=== PATIENT | female | born 1950 | race Caucasian/White ===

== ENCOUNTER 2017-05-20 08:28 | Observation (INO) | payer BC ==
[~2017-05-20 08:28] MED LIST: HYDROmorphone 1 MG/ML Syringe ONE; Ketorolac 30 MG/ML SDV ONE; Lactated Ringers 1,000 ML ONE; Lidocaine 1%/Sod Bicarbonate in NS 8.4% 1 ML Syringe PRN; Midazolam 1 MG/ML 2 ML SDV ONE; Ondansetron 4 MG/2 ML SDV ONE; Propofol 200 MG/20 ML SDV ONE; Rocuronium 50 MG/5 ML Vial ONE; Sodium Chloride 0.9% 10 ML Syringe FLUSH PRN; ceFAZolin 1 GM Vial ONE; fentaNYL 250 MCG/5 ML SDV ONE
[2017-05-20] MEDS: Lactated Ringers 1,000 ML IV SCH ×3 (08:50→20:19)
[2017-05-20] MEDS ORDERED: Lidocaine 1% with EPINEPHrine 1:100,000 20 ML MDV ONE (09:04)
[2017-05-20] MEDS ORDERED: Bupivacaine 0.5% 30 ML SDV ONE (09:04)
[2017-05-20] MEDS ORDERED: Sodium Chloride 0.9% 50 ML SDV ONE (09:04)
--- NOTE | 2017-05-20 09:36 | PCM.PREANE ---
[id number] - Anesthesia/Transfusion/Family Hx Anesthesia History: Prior Anesthesia Without Reaction (had some delayed n/v from colonoscopy last year and several weeks of cough/tickle in throat) Family History of Anesthesia Reaction: No - Review of Systems General: No Symptoms Pulmonary: No Symptoms Cardiovascular: No Symptoms Gastrointestinal: No symptoms Neurological: No Symptoms Other: Reports: Easy Bruising - Physical Assessment NPO Status Date: 05/19/17 NPO Status Time: 23:15 O2 Sat by Pulse Oximetry: 94 Respiratory Rate: 18 Vital Signs: Last Vital Signs Temp 36.1 C 05/20/17 08:30 Pulse 67 05/20/17 08:30 Resp 18 05/20/17 08:30 BP 125/83 05/20/17 08:30 Pulse Ox 94 L 05/20/17 08:30 Height: 1.57 m Weight: 85.729 kg ASA Class: 2 Mental Status: Alert & Oriented x3 Airway Class: Mallampati = 2 Dentition: Reports: Larose(s) (x3 lower), Bridge (rm upper right back) Thyro-Mental Finger Breadths: 3 Mouth Opening Finger Breadths: 3 ROM/Head Extension: Full Lungs: Clear to auscultation, Normal respiratory effort Cardiovascular: Regular Rate, Regular Rhythm, No Murmurs - Lab Values: Laboratory Last Values WBC 6.44 K/mm3 (3.98-10.04) 05/19/17 13:49 RBC 5.18 M/mm3 (3.98-5.22) 05/19/17 13:49 Hgb 14.9 gm/L (11.2-15.7) 05/19/17 13:49 Hct 44.2 % (34.1-44.9) 05/19/17 13:49 MCV 85.3 fl (79.4-94.8) 05/19/17 13:49 MCH 28.8 pg (25.6-32.2) 05/19/17 13:49 MCHC 33.7 g/dl (32.2-35.5) 05/19/17 13:49 RDW Std Deviation 42.0 fL (36.4-46.3) 05/19/17 13:49 Plt Count 279 K/mm3 (182-369) 05/19/17 13:49 MPV 10.4 fl (9.4-12.3) 05/19/17 13:49 Neut % (Auto) 53.9 % (34.0-71.1) 05/19/17 13:49 Lymph % (Auto) 31.5 % (19.3-51.7) 05/19/17 13:49 Green % (Auto) 10.2 % (4.7-12.5) 05/19/17 13:49 Eos % (Auto) 3.6 (0.7-5.8) 05/19/17 13:49 Baso % (Auto) 0.5 % (0.1-1.2) 05/19/17 13:49 Neut # (Auto) 3.47 K/mm3 (1.56-6.13) 05/19/17 13:49 Lymph # (Auto) 2.03 K/mm3 (1.18-3.74) 05/19/17 13:49 Green # (Auto) 0.66 K/mm3 (0.24-0.36) H 05/19/17 13:49 Eos # (Auto) 0.23 K/mm3 (0.04-0.36) 05/19/17 13:49 Baso # (Auto) 0.03 K/mm3 (0.01-0.08) 05/19/17 13:49 Blood Type O POSITIVE 05/19/17 13:49 Gel Antibody Screen Negative 05/19/17 13:49 - Imaging/EKG Impressions: EKG Sinus Rhythm with nos-specific t-wame abn. - Allergies Allergies/Adverse Reactions: Allergies Allergy/AdvReac Type Severity Reaction Status Date / Time lidocaine Allergy Facial Verified 05/20/17 09:22 Swelling - Blood Blood Available: No - Acknowledgements Anesthesia Type Planned: General Anesthesia Pt an Appropriate Candidate for the Planned Anesthesia: Yes Alternatives and Risks of Anesthesia Discussed w Pt/Guardian: Yes Pt/Guardian Understands and Agrees with Anesthesia Plan: Yes PreAnesthesia Questionnaire HEENT History: Reports: Impaired Vision, Other (See Below) Other HEENT History: wears glasses Cardiovascular History: Reports: None Respiratory History: Reports: None Gastrointestinal History: Reports: Irritable Bowel Syndrome Genitourinary History: Reports: Other (See Below) Other Genitourinary History: cystocele, pelvic pressure, pelvic prolapse, rectocele HR ASSISTANT History: Reports: , Other (See Below) Other OB/BYN History: pelvic pressure and prolapse, fibrocystic breast disease, breast lumpectomy Musculoskeletal History: Reports: None Neurological History: Reports: None Psychiatric History: Reports: None Endocrine/Metabolic History: Reports: None Hematologic History: Reports: None Immunologic History: Reports: None Oncologic (Cancer) History: Reports: None Dermatologic History: Reports: None - Past Surgical History Head Surgeries/Procedures: Reports: None HEENT Surgical History: Reports: Tonsillectomy Cardiovascular Surgical History: Reports: None Respiratory Surgical History: Reports: None GI Surgical History: Reports: Appendectomy, Colonoscopy Endocrine Surgical History: Reports: None Neurological Surgical History: Reports: None Musculoskeletal Surgical History: Reports: Other (See Below) Other Musculoskeletal Surgeries/Procedures:: cyst removed from R middle finger in 2010 Oncologic Surgical History: Reports: Lumpectomy Other Oncologic Surgeries/Procedures: breast lumpectecomy for fibrocystic breast disease Dermatological Surgical History: Reports: None - SUBSTANCE USE Smoking Status *Q: Never Smoker Tobacco Use Within Last Twelve Months: No Days Per Week of Alcohol Use: 0 (endorses rare alcohol consumption) Recreational Drug Use History: No - HOME MEDS Home Medications: Home Meds Calcium Carbonate/Vitamin D3 [Calcium 500 + Vit D Caplet] 1 tab PO DAILY [History] Estrogens, Conjugated [Premarin Vaginal Crm] 1 applic VAG BEDTIME 05/19/17 [ History] L.acidoph,Paracasei, B.lactis [Probiotic] 1 cap PO DAILY 05/19/17 [History] Multivits,Ca,Minerals/Iron/FA [Women's Daily Formula Caplet] 1 tab PO DAILY [History] Ibuprofen [Motrin] 600 mg PO Q6H #50 tablet 05/20/17 [Rx] oxyCODONE HCl/Acetaminophen [Percocet 5-325 mg Tablet] 1 each PO Q6H #30 tablet 05/20/17 [Rx] - CURRENT (IN HOUSE) MEDS Current Meds: Current Medications Lactated Ringer's (Ringers, Lactated) 1,000 mls @ 125 mls/hr IV ASDIRECTED AUBREY Stop: 05/20/17 23:00 Last Admin: 05/20/17 08:50 Dose: 125 mls/hr Lidocaine/Sodium Bicarbonate (Buffered Lidocaine 1% In Ns 8.4%) 0.25 ml .XX ONETIME PRN PRN Reason: Prior to IV Start Stop: 05/20/17 18:00 Last Admin: 05/20/17 08:49 Dose: 0.25 ml Sodium Chloride (Saline Flush) 10 ml FLUSH ASDIRECTED PRN PRN Reason: Keep Vein Open Stop: 05/20/17 18:00 Discontinued Medications Bupivacaine HCl (Marcaine 0.5%) Confirm Administered Dose 30 ml .ROUTE .STK-MED ONE Stop: 05/20/17 09:05 Cefazolin Sodium (Ancef) Confirm Administered Dose 2 gm .ROUTE .STK-MED ONE Stop: 05/20/17 07:33 Fentanyl (Sublimaze) Confirm Administered Dose 250 mcg .ROUTE .STK-MED ONE Stop: 05/20/17 07:34 Hydromorphone HCl (Dilaudid) Confirm Administered Dose 1 mg .ROUTE .STK-MED ONE Stop: 05/20/17 07:33 Lactated Ringer's (Ringers, Lactated) Confirm Administered Dose 1,000 mls @ as directed .ROUTE .STK-MED ONE Stop: 05/20/17 07:33 Ketorolac Tromethamine (Toradol) Confirm Administered Dose 30 mg .ROUTE .STK- MED ONE Stop: 05/20/17 07:33 Lidocaine/Epinephrine (Xylocaine 1% With Epinephrine 1:100,000) Confirm Administered Dose 20 ml .ROUTE .STK-MED ONE Stop: 05/20/17 09:05 Midazolam HCl (Versed 1 Mg/Ml) Confirm Administered Dose 2 mg .ROUTE .STK-MED ONE Stop: 05/20/17 07:34 Ondansetron HCl (Zofran) Confirm Administered Dose 4 mg .ROUTE .STK-MED ONE Stop: 05/20/17 07:33 Propofol (Diprivan 20 Ml) Confirm Administered Dose 200 mg .ROUTE .STK-MED ONE Stop: 05/20/17 07:34 Rocuronium Penn (Zemuron) Confirm Administered Dose 50 mg .ROUTE .STK-MED ONE Stop: 05/20/17 07:33 Sodium Chloride (Normal Saline) Confirm Administered Dose 50 ml .ROUTE .STK-MED ONE Stop: 05/20/17 09:05
[2017-05-20] MEDS ORDERED: Ondansetron 4 MG/2 ML SDV IVPUSH PRN ×2 (11:02→19:59)
[2017-05-20] MEDS ORDERED: ePHEDrine 50 MG/ML SDV IVPUSH PRN (11:02)
[2017-05-20] MEDS ORDERED: HYDROmorphone 0.5 MG/0.5 ML Syringe IVPUSH PRN (11:02)
[2017-05-20] MEDS ORDERED: Neostigmine Methylsulfate 1 MG/ML 5 ML Syringe ONE (11:22)
[2017-05-20] MEDS ORDERED: Albuterol 0.083% 2.5 MG/3 ML Neb Soln NEB PRN (11:24)
--- NOTE | 2017-05-20 12:03 | PCM.POSTAN ---
POST ANESTHESIA ASSESSMENT - MENTAL STATUS Mental Status: somnolent - VITAL SIGNS Pulse Rate: 76 SaO2: 98 Resp Rate: 13 Blood Pressure: 103/57 Temperature: 37.1 C - RESPIRATORY Respiratory Status: respiratory rate WNL, airway patent, O2 saturation stable, supplemental oxygen - CARDIOVASCULAR CV Status: pulse rate WNL, blood pressure stable - GASTROINTESTINAL GI Status: no symptoms - POST OP HYDRATION Hydration Status: adequate & stable
--- NOTE | 2017-05-20 12:10 | PCM.OPNOTE ---
- General Post-Op/Procedure Note Date of Surgery/Procedure: 05/20/17 Operative Procedure(s): Total vaginal hysterectomy bilateral salpingo- [id number]. Anterior-posterior [id number]. Mid urethral sling [id number] Pre Op Diagnosis: Midline cystocele pelvic prolapse rectocele Post-Op Diagnosis: Same Anesthesia Technique: General ET tube Primary Surgeon: Jason Lal Secondary Surgeon: Faraz Bravo Anesthesia Provider: Le Moreno Fluid Replacement, Intraop: 1,600 Output, Urine Amount: 170 EBL in mLs: 300 Drain/Tube Comments:: None Complications: None Condition: Good Free Text/Narrative:: Intake & Output 05/19/17 05/20/17 05/20/17 22:59 06:59 14:59 Output Total 170 Balance -170 Patient was transported to operating room #2 and placed under general anesthesia with endotracheal intubation low dorsal lithotomy position. Draped in a sterile fashion SCDs in place and functioning prior surgery Ancef 2 g intravenously prior surgery given timeout performed confirming name did worsen procedures total vaginal hysterectomy and bilateral salpingo-oophorectomy anterior-posterior repair mid urethral sling (patient also had been prepared for flap scope cystovaginal hysterectomy or total abdominal hysterectomy needs required) the examination under anesthesia had revealed significant prolapse and normal size uterus for patient's age no adnexal masses decision was made to proceed vaginally injecting approximately 20 mL of 0.25% lidocaine with epinephrine in a circumferential area around the cervix and circumscribing the cervix posterior colpotomy was performed without difficulty sitting and the pedicle fashion cephalad crossclamping activating and incising utilizing LigaSure the uterosacral cardinal ligaments were crossclamped activated in size and proceeding cephalad 1 additional pedicle bilaterally and anterior colpotomy was then performed without difficulty proceeding cephalad in the pedicle fashion crossclamping activating incising until the posterior fundal portion of the uterus could be brought through the posterior portion of the incision and crossclamping the triple pedicles bilaterally the uterus removed the triple pedicles were then placed under traction and crossclamping above the tube and ovaries the infundibulopelvic ligament was crossclamped and incised and suture ligated with #1 Vicryl bilaterally with good hemostasis the posterior vaginal cuff was run with a running locking suture of 0 Monocryl to assist in hemostasis pursestring suture was then placed of 0 Monocryl incorporating the pedicles extraperitoneally anterior colporrhaphy was then performed undermining the anterior cystovaginal tissue was approximated 7 mL of 0.25% lidocaine with epinephrine and incising along the vaginal midline then utilizing traction and countertraction and opened up 4 x 4 the cystocele was peeled away from the underlying vaginal mucosa after having inscribe same with Metzenbaum scissors the plication wasn't performed a 0 Monocryl beginning at the cysto urethral angle and proceeding cephalad the cystocele was reduced redundant vaginal mucosa excised and the vaginal mucosa approximated with 3-0 Monocryl running suture suburethral space was then identified and grasped near the urethral meatus and at the cystoscopy vesicle angle and bladder emptied injecting approximately 3 mL of 0.25% lidocaine with epinephrine for hydrodissection of the tissue incising vertically and pushing the urethral tissue away from the vaginal mucosa subsurface having identified the obturator foramina bilaterally and marking same injecting 2 mL of 0.25% lidocaine and incising with 15 blade the obturator foramen was approximated from the vaginal angle and utilizing the mid urethral sling trochars introduced on the right side and then on the left side and the sling was placed under the urethra with a #1516 Hegar dilator to allow relaxation of this area postoperatively in trying to avoid severe scar tissue and making it more difficult for her to avoid the incision was closed with 3-0 Monocryl running suture the posterior perineorrhaphy and colporrhaphy was then performed and injecting approximately 20 mL of 0.25% lidocaine with epinephrine and multiple confluent areas of the vagina and towards the apex of the rectocele a miguel angel-shaped incision was made at the perineal body removing this redundant skin and undermining the vaginal mucosa with Metzenbaum scissor to the apex of the rectocele then pushing the rectocele tissue caudad utilizing opened wet 4 x 4 plication of the rectocele was then performed producing rectocele utilizing 0 Monocryl suture in multiple areas beginning at the apex and approaching the perineal body lengthening the vagina and reducing the rectocele redundant vaginal mucosa was excised the vaginal mucosa was then closed with 3-0 Monocryl running suture and the perineorrhaphy was performed with 2 interrupted 0 Monocryl sutures for strengthen the perineal body and the perineal skin was approximated with 3-0 Monocryl sponge needle pack asthma sharp count correct 2 upon closure of the abdomen at the end of the procedure patient tolerated procedure well transported postanesthesia care unit in satisfactory condition and met with her friend and nephew to discuss surgery findings all questions arrested her voiced satisfaction no blood transfusions were required 240 mL of saline instilled in the bladder to the procedure to assist in the urge to void patient also will be given Urecholine 10 mg hourly for 5 doses and then every 6 hours thereafter if unable to void
[2017-05-20] MEDS ORDERED: fentaNYL 100 MCG/2 ML SDV ONE (12:18)
[2017-05-20] MEDS ORDERED: fentaNYL 100 MCG/2 ML SDV IVPUSH SCH (12:19)
[2017-05-20] MEDS: fentaNYL 100 MCG/2 ML SDV IVPUSH PRN ×2 (12:21→12:37)
--- NOTE | 2017-05-20 13:33 | PCM48HPAN ---
Post Anesthesia Note - EVALUATION WITHIN 48HRS OF ANESTHETIC Vital Signs in Normal Range: Yes Patient Participated in Evaluation: Yes Respiratory Function Stable: Yes Airway Patent: Yes Cardiovascular Function Stable: Yes Hydration Status Stable: Yes Pain Control Satisfactory: Yes Nausea and Vomiting Control Satisfactory: Yes Mental Status Recovered: Yes
--- NOTE | 2017-05-20 16:46 | PCM.SN ---
- Free Text/Narrative Note: Patient having acute urinary retention and if unable to void will be placed on Observation status. Orders given. Visited with patient and discussed the urinary retention. Will have patient void and measure voiding, then scan bladder for residual and if >150 ml in and out cath and repeat each voiding. On Urecholine 10 mg po q6h. If post void residual <150 ml no need for in out cath. No heavy vaginal bleeding, no leg cramping. Patient agrees with plan.
[2017-05-20] MEDS ORDERED: Acetaminophen/oxyCODONE 325-5 MG Tab PO PRN ×2 (16:55→18:19)
[2017-05-21] MEDS: Lactated Ringers 1,000 ML IV SCH (06:23)
[2017-05-21 08:20] VITALS: BP 100/57
--- NOTE | 2017-05-21 08:37 | PCM.DCSUM1 ---
Discharge Summary - Hospital Course Free Text/Narrative:: [facility] Post-Op/Procedure Note Patient Name: UGO IGNACIO Date of : 1950 Patient Status: Observation Attending Provider: Jason Lal Date: 05/20/17 12:01 Initialization Date: 05/20/17 12:01 - General Post-Op/Procedure Note Date of Surgery/Procedure: 05/20/17 Operative Procedure(s): Total vaginal hysterectomy bilateral salpingo- [id number]. Anterior-posterior [id number]. Mid urethral sling [id number] Pre Op Diagnosis: Midline cystocele pelvic prolapse rectocele Post-Op Diagnosis: Same Anesthesia Technique: General ET tube Primary Surgeon: Jason Lal Secondary Surgeon: Faraz Bravo Anesthesia Provider: Le Moreno Fluid Replacement, Intraop: 1,600 Output, Urine Amount: 170 EBL in mLs: 300 Drain/Tube Comments:: None Complications: None Condition: Good Free Text/Narrative:: Intake & Output 05/19/17 05/20/17 05/20/17 22:59 06:59 14:59 Output Total 170 Balance -170 Patient was transported to operating room #2 and placed under general anesthesia with endotracheal intubation low dorsal lithotomy position. Draped in a sterile fashion SCDs in place and functioning prior surgery Ancef 2 g intravenously prior surgery given timeout performed confirming name did worsen procedures total vaginal hysterectomy and bilateral salpingo-oophorectomy anterior-posterior repair mid urethral sling (patient also had been prepared for flap scope cystovaginal hysterectomy or total abdominal hysterectomy needs required) the examination under anesthesia had revealed significant prolapse and normal size uterus for patient's age no adnexal masses decision was made to proceed vaginally injecting approximately 20 mL of 0.25% lidocaine with epinephrine in a circumferential area around the cervix and circumscribing the cervix posterior colpotomy was performed without difficulty sitting and the pedicle fashion cephalad crossclamping activating and incising utilizing LigaSure the uterosacral cardinal ligaments were crossclamped activated in size and proceeding cephalad 1 additional pedicle bilaterally and anterior colpotomy was then performed without difficulty proceeding cephalad in the pedicle fashion crossclamping activating incising until the posterior fundal portion of the uterus could be brought through the posterior portion of the incision and crossclamping the triple pedicles bilaterally the uterus removed the triple pedicles were then placed under traction and crossclamping above the tube and ovaries the infundibulopelvic ligament was crossclamped and incised and suture ligated with #1 Vicryl bilaterally with good hemostasis the posterior vaginal cuff was run with a running locking suture of 0 Monocryl to assist in hemostasis pursestring suture was then placed of 0 Monocryl incorporating the pedicles extraperitoneally anterior colporrhaphy was then performed undermining the anterior cystovaginal tissue was approximated 7 mL of 0.25% lidocaine with epinephrine and incising along the vaginal midline then utilizing traction and countertraction and opened up 4 x 4 the cystocele was peeled away from the underlying vaginal mucosa after having inscribe same with Metzenbaum scissors the plication wasn't performed a 0 Monocryl beginning at the cysto urethral angle and proceeding cephalad the cystocele was reduced redundant vaginal mucosa excised and the vaginal mucosa approximated with 3-0 Monocryl running suture suburethral space was then identified and grasped near the urethral meatus and at the cystoscopy vesicle angle and bladder emptied injecting approximately 3 mL of 0.25% lidocaine with epinephrine for hydrodissection of the tissue incising vertically and pushing the urethral tissue away from the vaginal mucosa subsurface having identified the obturator foramina bilaterally and marking same injecting 2 mL of 0.25% lidocaine and incising with 15 blade the obturator foramen was approximated from the vaginal angle and utilizing the mid urethral sling trochars introduced on the right side and then on the left side and the sling was placed under the urethra with a #1516 Hegar dilator to allow relaxation of this area postoperatively in trying to avoid severe scar tissue and making it more difficult for her to avoid the incision was closed with 3-0 Monocryl running suture the posterior perineorrhaphy and colporrhaphy was then performed and injecting approximately 20 mL of 0.25% lidocaine with epinephrine and multiple confluent areas of the vagina and towards the apex of the rectocele a miguel angel-shaped incision was made at the perineal body removing this redundant skin and undermining the vaginal mucosa with Metzenbaum scissor to the apex of the rectocele then pushing the rectocele tissue caudad utilizing opened wet 4 x 4 plication of the rectocele was then performed producing rectocele utilizing 0 Monocryl suture in multiple areas beginning at the apex and approaching the perineal body lengthening the vagina and reducing the rectocele redundant vaginal mucosa was excised the vaginal mucosa was then closed with 3-0 Monocryl running suture and the perineorrhaphy was performed with 2 interrupted 0 Monocryl sutures for strengthen the perineal body and the perineal skin was approximated with 3-0 Monocryl sponge needle pack asthma sharp count correct 2 upon closure of the abdomen at the end of the procedure patient tolerated procedure well transported postanesthesia care unit in satisfactory condition and met with her friend and nephew to discuss surgery findings all questions arrested her voiced satisfaction no blood transfusions were required 240 mL of saline instilled in the bladder to the procedure to assist in the urge to void patient also will be given Urecholine 10 mg hourly for 5 doses and then every 6 hours thereafter if unable to void HPI Initial Comments: [facility] Post-Op/Procedure Note Patient Name: UGO IGNACIO Date of : 1950 Patient Status: Observation Attending Provider: Jason Lal Date: 05/20/17 12:01 Initialization Date: 05/20/17 12:01 - General Post-Op/Procedure Note Date of Surgery/Procedure: 05/20/17 Operative Procedure(s): Total vaginal hysterectomy bilateral salpingo- [id number]. Anterior-posterior [id number]. Mid urethral sling [id number] Pre Op Diagnosis: Midline cystocele pelvic prolapse rectocele Post-Op Diagnosis: Same Anesthesia Technique: General ET tube Primary Surgeon: Jason Lal Secondary Surgeon: Faraz Bravo Anesthesia Provider: Le Moreno Fluid Replacement, Intraop: 1,600 Output, Urine Amount: 170 EBL in mLs: 300 Drain/Tube Comments:: None Complications: None Condition: Good Free Text/Narrative:: Intake & Output 05/19/17 05/20/17 05/20/17 22:59 06:59 14:59 Output Total 170 Balance -170 Patient was transported to operating room #2 and placed under general anesthesia with endotracheal intubation low dorsal lithotomy position. Draped in a sterile fashion SCDs in place and functioning prior surgery Ancef 2 g intravenously prior surgery given timeout performed confirming name did worsen procedures total vaginal hysterectomy and bilateral salpingo-oophorectomy anterior-posterior repair mid urethral sling (patient also had been prepared for flap scope cystovaginal hysterectomy or total abdominal hysterectomy needs required) the examination under anesthesia had revealed significant prolapse and normal size uterus for patient's age no adnexal masses decision was made to proceed vaginally injecting approximately 20 mL of 0.25% lidocaine with epinephrine in a circumferential area around the cervix and circumscribing the cervix posterior colpotomy was performed without difficulty sitting and the pedicle fashion cephalad crossclamping activating and incising utilizing LigaSure the uterosacral cardinal ligaments were crossclamped activated in size and proceeding cephalad 1 additional pedicle bilaterally and anterior colpotomy was then performed without difficulty proceeding cephalad in the pedicle fashion crossclamping activating incising until the posterior fundal portion of the uterus could be brought through the posterior portion of the incision and crossclamping the triple pedicles bilaterally the uterus removed the triple pedicles were then placed under traction and crossclamping above the tube and ovaries the infundibulopelvic ligament was crossclamped and incised and suture ligated with #1 Vicryl bilaterally with good hemostasis the posterior vaginal cuff was run with a running locking suture of 0 Monocryl to assist in hemostasis pursestring suture was then placed of 0 Monocryl incorporating the pedicles extraperitoneally anterior colporrhaphy was then performed undermining the anterior cystovaginal tissue was approximated 7 mL of 0.25% lidocaine with epinephrine and incising along the vaginal midline then utilizing traction and countertraction and opened up 4 x 4 the cystocele was peeled away from the underlying vaginal mucosa after having inscribe same with Metzenbaum scissors the plication wasn't performed a 0 Monocryl beginning at the cysto urethral angle and proceeding cephalad the cystocele was reduced redundant vaginal mucosa excised and the vaginal mucosa approximated with 3-0 Monocryl running suture suburethral space was then identified and grasped near the urethral meatus and at the cystoscopy vesicle angle and bladder emptied injecting approximately 3 mL of 0.25% lidocaine with epinephrine for hydrodissection of the tissue incising vertically and pushing the urethral tissue away from the vaginal mucosa subsurface having identified the obturator foramina bilaterally and marking same injecting 2 mL of 0.25% lidocaine and incising with 15 blade the obturator foramen was approximated from the vaginal angle and utilizing the mid urethral sling trochars introduced on the right side and then on the left side and the sling was placed under the urethra with a #1516 Hegar dilator to allow relaxation of this area postoperatively in trying to avoid severe scar tissue and making it more difficult for her to avoid the incision was closed with 3-0 Monocryl running suture the posterior perineorrhaphy and colporrhaphy was then performed and injecting approximately 20 mL of 0.25% lidocaine with epinephrine and multiple confluent areas of the vagina and towards the apex of the rectocele a miguel angel-shaped incision was made at the perineal body removing this redundant skin and undermining the vaginal mucosa with Metzenbaum scissor to the apex of the rectocele then pushing the rectocele tissue caudad utilizing opened wet 4 x 4 plication of the rectocele was then performed producing rectocele utilizing 0 Monocryl suture in multiple areas beginning at the apex and approaching the perineal body lengthening the vagina and reducing the rectocele redundant vaginal mucosa was excised the vaginal mucosa was then closed with 3-0 Monocryl running suture and the perineorrhaphy was performed with 2 interrupted 0 Monocryl sutures for strengthen the perineal body and the perineal skin was approximated with 3-0 Monocryl sponge needle pack asthma sharp count correct 2 upon closure of the abdomen at the end of the procedure patient tolerated procedure well transported postanesthesia care unit in satisfactory condition and met with her friend and nephew to discuss surgery findings all questions arrested her voiced satisfaction no blood transfusions were required 240 mL of saline instilled in the bladder to the procedure to assist in the urge to void patient also will be given Urecholine 10 mg hourly for 5 doses and then every 6 hours thereafter if unable to void Brief History: [facility] . Post-Op/Procedure Note. [facility]: [id number]. Date of : 1Patient Status: Observation. Attending Provider: Jason Lalount Number: [id number]. Date: 05/20/17 12:01Initialization Date: 12:01. - General Post-Op/Procedure Note. Date of Surgery/Procedure: . Operative Procedure(s): Total vaginal hysterectomy bilateral salpingo- [id number]. Anterior-posterior [id number]. Mid urethral sling 30305. Pre Op Diagnosis: Midline cystocele pelvic prolapse rectocele. Post-Op Diagnosis: Same. Anesthesia Technique: General ET tube. Primary Surgeon: Jason Lal. Secondary Surgeon: Faraz Bravo. Anesthesia Provider: Le Moreno. Fluid Replacement, Intraop: 1,600. Output, Urine Amount: 170. EBL in mLs: 300. Drain/Tube Comments:: None. Complications: None. Condition: Good. Free Text/Narrative:: Intake & Output. 05/19/1706. 22:5906:5914:59. Output [id number]. Balance-170. Patient was transported to operating room #2 and placed under general anesthesia with endotracheal intubation low dorsal lithotomy position. Draped in a sterile fashion SCDs in place and functioning prior surgery Ancef 2 g intravenously prior surgery given timeout performed confirming name did worsen procedures total vaginal hysterectomy and bilateral salpingo-oophorectomy anterior-posterior repair mid urethral sling (patient also had been prepared for flap scope cystovaginal hysterectomy or total abdominal hysterectomy needs required) the examination under anesthesia had revealed significant prolapse and normal size uterus for patient's age no adnexal masses decision was made to proceed vaginally injecting approximately 20 mL of 0.25% lidocaine with epinephrine in a circumferential area around the cervix and circumscribing the cervix posterior colpotomy was performed without difficulty sitting and the pedicle fashion cephalad crossclamping activating and incising utilizing LigaSure the uterosacral cardinal ligaments were crossclamped activated in size and proceeding cephalad 1 additional pedicle bilaterally and anterior colpotomy was then performed without difficulty proceeding cephalad in the pedicle fashion crossclamping activating incising until the posterior fundal portion of the uterus could be brought through the posterior portion of the incision and crossclamping the triple pedicles bilaterally the uterus removed the triple pedicles were then placed under traction and crossclamping above the tube and ovaries the infundibulopelvic ligament was crossclamped and incised and suture ligated with #1 Vicryl bilaterally with good hemostasis the posterior vaginal cuff was run with a running locking suture of 0 Monocryl to assist in hemostasis pursestring suture was then placed of 0 Monocryl incorporating the pedicles extraperitoneally anterior colporrhaphy was then performed undermining the anterior cystovaginal tissue was approximated 7 mL of 0.25% lidocaine with epinephrine and incising along the vaginal midline then utilizing traction and countertraction and opened up 4 x 4 the cystocele was peeled away from the underlying vaginal mucosa after having inscribe same with Metzenbaum scissors the plication wasn't performed a 0 Monocryl beginning at the cysto urethral angle and proceeding cephalad the cystocele was reduced redundant vaginal mucosa excised and the vaginal mucosa approximated with 3-0 Monocryl running suture suburethral space was then identified and grasped near the urethral meatus and at the cystoscopy vesicle angle and bladder emptied injecting approximately 3 mL of 0.25% lidocaine with epinephrine for hydrodissection of the tissue incising vertically and pushing the urethral tissue away from the vaginal mucosa subsurface having identified the obturator foramina bilaterally and marking same injecting 2 mL of 0.25% lidocaine and incising with 15 blade the obturator foramen was approximated from the vaginal angle and utilizing the mid urethral sling trochars introduced on the right side and then on the left side and the sling was placed under the urethra with a #1516 Hegar dilator to allow relaxation of this area postoperatively in trying to avoid severe scar tissue and making it more difficult for her to avoid the incision was closed with 3-0 Monocryl running suture the posterior perineorrhaphy and colporrhaphy was then performed and injecting approximately 20 mL of 0.25% lidocaine with epinephrine and multiple confluent areas of the vagina and towards the apex of the rectocele a miguel angel-shaped incision was made at the perineal body removing this redundant skin and undermining the vaginal mucosa with Metzenbaum scissor to the apex of the rectocele then pushing the rectocele tissue caudad utilizing opened wet 4 x 4 plication of the rectocele was then performed producing rectocele utilizing 0 Monocryl suture in multiple areas beginning at the apex and approaching the perineal body lengthening the vagina and reducing the rectocele redundant vaginal mucosa was excised the vaginal mucosa was then closed with 3-0 Monocryl running suture and the perineorrhaphy was performed with 2 interrupted 0 Monocryl sutures for strengthen the perineal body and the perineal skin was approximated with 3-0 Monocryl sponge needle pack asthma sharp count correct 2 upon closure of the abdomen at the end of the procedure patient tolerated procedure well transported postanesthesia care unit in satisfactory condition and met with her friend and nephew to discuss surgery findings all questions arrested her voiced satisfaction no blood transfusions were required 240 mL of saline instilled in the bladder to the procedure to assist in the urge to void patient also will be given Urecholine 10 mg hourly for 5 doses and then every 6 hours thereafter if unable to void - Discharge Data Discharge Date: 05/21/17 Discharge Disposition: Home, Self-Care 01 Condition: Good - Discharge Diagnosis/Problem(s) (1) Rectocele SNOMED Code(s): 792609923 ICD Code: N81.6 - RECTOCELE Status: Acute Current Visit: Yes (2) Female genital prolapse SNOMED Code(s): 69911368 ICD Code: N81.9 - FEMALE GENITAL PROLAPSE, UNSPECIFIED Status: Acute Current Visit: Yes Qualifiers: Prolapse type: incomplete uterovaginal prolapse Qualified Code(s): N81.2 - Incomplete uterovaginal prolapse (3) Cystocele, midline SNOMED Code(s): 916521372 ICD Code: N81.11 - CYSTOCELE, MIDLINE Status: Acute Current Visit: Yes (4) Acute urinary retention SNOMED Code(s): 106141139 ICD Code: R33.8 - OTHER RETENTION OF URINE Status: Acute Current Visit: Yes - Patient Summary/Data Operative Procedure(s) Performed: Total vaginal hysterectomy bilateral salpingo- [id number]. Anterior-posterior [id number]. Mid urethral sling 02969 Complications: acute urinary retention resovled Consults: none Hospital Course: uneventful - Patient Instructions Diet: Heart Healthy Diet Driving: Do Not Drive (x48 hours after surgery and 48 hours after last Percocet) Showering/Bathing: May Shower, No Tub Bathing/Swimming (x6 weeks) Wound/Incision Care: Keep Operative Site/Wound Site Clean and Dry Notify Provider of: Fever, Increased Pain, Swelling and Redness, Drainage - Discharge Plan Prescriptions/Med Rec: Bethanechol Chloride [Urecholine] 10 mg PO QID #30 tablet Ibuprofen [Motrin] 600 mg PO Q6H #50 tablet oxyCODONE HCl/Acetaminophen [Percocet 5-325 mg Tablet] 1 each PO Q6H #30 tablet Home Medications: Home Meds Calcium Carbonate/Vitamin D3 [Calcium 500 + Vit D Caplet] 1 tab PO DAILY [History] Estrogens, Conjugated [Premarin Vaginal Crm] 1 applic VAG BEDTIME 05/19/17 [ History] L.acidoph,Paracasei, B.lactis [Probiotic] 1 cap PO DAILY 05/19/17 [History] Multivits,Ca,Minerals/Iron/FA [Women's Daily Formula Caplet] 1 tab PO DAILY [History] Ibuprofen [Motrin] 600 mg PO Q6H #50 tablet 05/20/17 [Rx] oxyCODONE HCl/Acetaminophen [Percocet 5-325 mg Tablet] 1 each PO Q6H #30 tablet 05/20/17 [Rx] Bethanechol Chloride [Urecholine] 10 mg PO QID #30 tablet 05/21/17 [Rx] Patient Handouts: Laparoscopically Assisted Vaginal Hysterectomy, Care After, Hysterectomy Information, [id number] Referrals: Jason Lal MD [Physician] - 06/18/17 11:00 am ([address] Lal) - Discharge Summary/Plan Comment DC Time >30 min.: No - Patient Data Vitals - Most Recent: Last Vital Signs Temp 98.3 F 05/21/17 08:00 Pulse 69 05/21/17 02:18 Resp 15 05/21/17 08:00 BP 100/57 L 05/21/17 08:00 Pulse Ox 98 05/21/17 08:00 Weight - Most Recent: 196 lb 1.6 oz I&O - Last 24 hours: Intake & Output 05/20/17 05/21/17 05/21/17 22:59 06:59 14:59 Intake Total 530 1840 Output Total 900 Balance 530 940 Med Orders - Current: Current Medications Albuterol (Proventil Neb Soln) 2.5 mg NEB ONETIME PRN PRN Reason: Cough Bethanechol Chloride (Urecholine) 10 mg PO Q6H AUBREY Last Admin: 05/21/17 06:32 Dose: Not Given Lactated Ringer's (Ringers, Lactated) 1,000 mls @ 100 mls/hr IV ASDIRECTED AUBREY Last Admin: 05/21/17 06:23 Dose: 100 mls/hr Ondansetron HCl (Zofran) 4 mg IVPUSH Q6H PRN PRN Reason: Nausea Last Admin: 05/20/17 20:19 Dose: 4 mg Oxycodone/Acetaminophen (Percocet 325-5 Mg) 1 - 2 tab PO Q6H PRN PRN Reason: Pain Last Admin: 05/20/17 22:18 Dose: 1 tab Discontinued Medications Bethanechol Chloride (Urecholine) 10 mg PO ONETIME ONE Stop: 05/20/17 11:57 Last Admin: 05/20/17 12:55 Dose: 10 mg Bethanechol Chloride (Urecholine) 10 mg PO Q1H [facility] Stop: 05/20/17 16:11 Last Admin: 05/20/17 19:54 Dose: Not Given Bethanechol Chloride (Urecholine) 10 mg PO Q6H AUBREY Bupivacaine HCl (Marcaine 0.5%) Confirm Administered Dose 30 ml .ROUTE .STK-MED ONE Stop: 05/20/17 09:05 Cefazolin Sodium (Ancef) Confirm Administered Dose 2 gm .ROUTE .STK-MED ONE Stop: 05/20/17 07:33 Ephedrine Sulfate (Ephedrine Sulfate) 5 mg IVPUSH ASDIRECTED PRN PRN Reason: Hypotension Stop: 05/20/17 18:00 Fentanyl (Sublimaze) Confirm Administered Dose 250 mcg .ROUTE .STK-MED ONE Stop: 05/20/17 07:34 Fentanyl (Sublimaze) 50 mcg IVPUSH Q5M PRN PRN Reason: Pain Stop: 05/20/17 11:36 Last Admin: 05/20/17 12:37 Dose: 50 mcg Fentanyl (Sublimaze) 50 mcg IVPUSH ONETIME AUBREY Stop: 05/20/17 18:00 Fentanyl (Sublimaze) Confirm Administered Dose 100 mcg .ROUTE .STK-MED ONE Stop: 05/20/17 12:19 Last Admin: 05/20/17 19:55 Dose: Not Given Glycopyrrolate () Confirm Administered Dose 1 mg .ROUTE .STK-MED ONE Stop: 05/20/17 11:23 Hydromorphone HCl (Dilaudid) Confirm Administered Dose 1 mg .ROUTE .STK-MED ONE Stop: 05/20/17 07:33 Hydromorphone HCl (Dilaudid) 0.5 mg IVPUSH Q15M PRN PRN Reason: severe pain Stop: 05/20/17 11:18 Lactated Ringer's (Ringers, Lactated) 1,000 mls @ 125 mls/hr IV ASDIRECTED AUBREY Stop: 05/20/17 23:00 Last Admin: 05/20/17 14:21 Dose: 125 mls/hr Lactated Ringer's (Ringers, Lactated) Confirm Administered Dose 1,000 mls @ as directed .ROUTE .STK-MED ONE Stop: 05/20/17 07:33 Ketorolac Tromethamine (Toradol) Confirm Administered Dose 30 mg .ROUTE .STK- MED ONE Stop: 05/20/17 07:33 Lidocaine/Epinephrine (Xylocaine 1% With Epinephrine 1:100,000) Confirm Administered Dose 20 ml .ROUTE .STK-MED ONE Stop: 05/20/17 09:05 Last Admin: 05/20/17 10:23 Dose: 15 ml Lidocaine/Sodium Bicarbonate (Buffered Lidocaine 1% In Ns 8.4%) 0.25 ml .XX ONETIME PRN PRN Reason: Prior to IV Start Stop: 05/20/17 18:00 Last Admin: 05/20/17 08:49 Dose: 0.25 ml Midazolam HCl (Versed 1 Mg/Ml) Confirm Administered Dose 2 mg .ROUTE .STK-MED ONE Stop: 05/20/17 07:34 Neostigmine Methylsulfate (Neostigmine) Confirm Administered Dose 5 mg .ROUTE .STK-MED ONE Stop: 05/20/17 11:23 Ondansetron HCl (Zofran) Confirm Administered Dose 4 mg .ROUTE .STK-MED ONE Stop: 05/20/17 07:33 Ondansetron HCl (Zofran) 4 mg IVPUSH ONETIME PRN PRN Reason: Nausea/Vomiting Stop: 05/20/17 18:00 Last Admin: 05/20/17 13:30 Dose: 4 mg Oxycodone/Acetaminophen (Percocet 325-5 Mg) 1 tab PO Q4H PRN PRN Reason: Breakthrough Pain Last Admin: 05/20/17 17:58 Dose: 1 tab Propofol (Diprivan 20 Ml) Confirm Administered Dose 200 mg .ROUTE .STK-MED ONE Stop: 05/20/17 07:34 Rocuronium [place] (Zemuron) Confirm Administered Dose 50 mg .ROUTE .STK-MED ONE Stop: 05/20/17 07:33 Sodium Chloride (Saline Flush) 10 ml FLUSH ASDIRECTED PRN PRN Reason: Keep Vein Open Stop: 05/20/17 18:00 Sodium Chloride (Normal Saline) Confirm Administered Dose 50 ml .ROUTE .STK-MED ONE Stop: 05/20/17 09:05 Last Admin: 05/20/17 10:23 Dose: 40 ml *Q Meaningful Use (DIS) - VTE *Q VTE Criteria *Q: - Stroke *Q Stroke Criteria *Q: - AMI *Q AMI Criteria *Q:
[2017-05-21] MEDS ORDERED: Ibuprofen 600 MG Tab PO ONE (08:59)
== END 2017-05-21 11:40 | disposition home or self-care (01) ==
LOC: JD.SDS 08:28 → JD.MS 17:37
PROVIDERS: ADMIT Obstetrics & Gynecology; ATTEND Obstetrics & Gynecology
DX: N81.11 Cystocele, midline (principal); N81.4 Uterovaginal prolapse, unspecified; R33.8 Other retention of urine; Z88.4 Allergy status to anesthetic agent; Z79.899 Other long term (current) drug therapy
CPT/HCPCS: 36415; 57260; 57288; 58262; 85025; 86850; 86900; 86901; 93005; 96360; 96361; A9270; C1771; G0378; J0690; J1170; J1885; J2405; J2710; J3010; J7120; 00944; J2250; J2704

== ENCOUNTER 2020-11-03 11:01 | Emergency (ER) | payer MEDICARE, BC ==
[2020-11-03 11:17] VITALS: BP 98/69; PULSE 53
[2020-11-03] MEDS ORDERED: Ketorolac 60 MG/2 ML SDV IM ONE (11:25)
--- NOTE | 2020-11-03 11:31 | EDM.PDOC ---
ED HPI GENERAL MEDICAL PROBLEM - General Chief Complaint: Upper Extremity Injury/Pain Stated Complaint: L ARM INJURY Time Seen by Provider: 11/03/20 11:12 Source of Information: Reports: Patient, RN Notes Reviewed History Limitations: Reports: No Limitations - History of Present Illness INITIAL COMMENTS - FREE TEXT/NARRATIVE: Patient is a 69-year-old female who presents to the ED for left wrist injury. She was at the [facility], was playing tennis and decided to go for the ball when her left foot seem to get caught on the surface and she fell down with an outstretched arm. She thought she heard a snap or a pop, and she was unable to move her left wrist much after this. There is some bruising and swelling at the left wrist joint, no obvious deformity. She is not able to move her fingers much however she can wiggle them. She has a very weak director retirement due to the pain. She denies any pain into her elbow and her shoulder seems fine. She did hit the side of her left face as well and bent her glasses and received a few small abrasions to her left lateral eyebrow. These are not bleeding, and she does not have a headache, any blurred vision or double vision. Patient denies any other sick-like symptoms, fever/chills, cough/shortness of breath, nausea/vomiting/diarrhea. Patient notes she is right-hand dominant. She did not take anything for pain management before coming to the ER. Left Arm Pain Score (Numeric/FACES): 10 - Related Data Allergies Allergy/AdvReac Type Severity Reaction Status Date / Time lidocaine Allergy Severe Facial Verified 11/03/20 11:17 Swelling Home Meds: Home Meds Calcium Carbonate/Vitamin D3 [Calcium 500-Vit D3 125 Caplet] 1 tab PO DAILY 05/19/17 [History] Estrogens, Conjugated [Premarin Vaginal Crm] 1 applic VAG BEDTIME 05/19/17 [History] L.acidoph,Paracasei, B.lactis [Probiotic] 1 cap PO DAILY 05/19/17 [History] Multivit,Calc,Mins/Iron/Folic [Women's Daily Formula Caplet] 1 tab PO DAILY 05/19/17 [History] Ibuprofen [Motrin] 600 mg PO Q6H #50 tablet 05/20/17 [Rx] oxyCODONE HCl/Acetaminophen [Percocet 5-325 mg Tablet] 1 each PO Q6H #30 tablet 05/20/17 [Rx] Bethanechol Chloride [Urecholine] 10 mg PO QID #30 tablet 05/21/17 [Rx] Hydrocodone/Acetaminophen [Hydrocodone-Acetamin 5-325 mg] 1 each PO Q6H PRN #12 tablet 11/03/20 [Rx] Past Medical History HEENT History: Reports: Impaired Vision Other HEENT History: wears glasses Gastrointestinal History: Reports: Irritable Bowel Syndrome Genitourinary History: Reports: Other (See Below) Other Genitourinary History: cystocele, pelvic pressure, pelvic prolapse, rectocele CHIEF WELLNESS OFFICER History: Reports: , Other (See Below) Other CHIEF WELLNESS OFFICER History: pelvic pressure and prolapse, fibrocystic breast disease, breast lumpectomy Endocrine/Metabolic History: Reports: Obesity/BMI 30+ - Infectious Disease History Infectious Disease History: Reports: Chicken Pox - Past Surgical History HEENT Surgical History: Reports: Tonsillectomy GI Surgical History: Reports: Appendectomy, Colonoscopy Musculoskeletal Surgical History: Reports: Other (See Below) Other Musculoskeletal Surgeries/Procedures:: cyst removed from R middle finger in 2010 Oncologic Surgical History: Reports: Lumpectomy Other Oncologic Surgeries/Procedures: breast lumpectecomy for fibrocystic breast disease Social & Family History - Family History Family Medical History: No Pertinent Family History - Tobacco Use Tobacco Use Status *Q: Never Tobacco User - Caffeine Use Caffeine Use: Reports: None - Recreational Drug Use Recreational Drug Use: No Review of Systems - Review of Systems Review Of Systems: Comprehensive ROS is negative, except as noted in HPI. ED EXAM, GENERAL - Physical Exam Exam: See Below Exam Limited By: No Limitations General Appearance: Alert, WD/WN, No Apparent Distress Head: Other (mild non bleeding skin abrasions to left lateral eyebrow.) Respiratory/Chest: No Respiratory Distress, Lungs Clear, Normal Breath Sounds, No Accessory Muscle Use, Chest Non-Tender Cardiovascular: Normal Peripheral Pulses, Regular Rate, Rhythm, No Murmur Extremities: Normal Capillary Refill, Limited Range of Motion (of left wrist d/t pain, mild bruising/swelling noted to posterior wrist surface) Neurological: Alert, Oriented, Normal Cognition, No Motor/Sensory Deficits Psychiatric: Normal Affect, Normal Mood Skin Exam: Warm, Dry, Intact, No Rash, Ecchymosis (very mild to left posterior wrist) ED TRAUMA EXTREMITY PROCEDURES - Splinting Left Upper Extremity Splint Site: left wrist Pre-Procedure NV Status: Normal Post-Procedure NV Status: Normal Splint Material: Fiberglass Splint Design: Gutter (ulnar gutter) Applied & Form Fitted By: Provider, Nurse Provider Post-Splint Application NV Check: NV Status Normal, Good Position Complications: No Course - Vital Signs Last Recorded V/S: Last Vital Signs Temp 96.3 F L 11/03/20 11:11 Pulse 53 L 11/03/20 11:11 Resp 18 11/03/20 11:11 BP 98/69 11/03/20 11:11 Pulse Ox 95 11/03/20 12:55 - Orders/Labs/Meds Meds: Medications Discontinued Medications Generic Name Dose Route Start Last Admin Trade Name Freq PRN Reason Stop Dose Admin Hydromorphone HCl 0.5 mg 11/03/20 12:15 11/03/20 12:39 Dilaudid IM 11/03/20 12:16 0.5 mg ONETIME ONE Administration Ketorolac Tromethamine 60 mg 11/03/20 11:25 11/03/20 11:30 Toradol IM 11/03/20 11:26 60 mg ONETIME ONE Administration Ondansetron HCl 4 mg 11/03/20 12:15 11/03/20 12:38 Zofran Odt PO 11/03/20 12:16 4 mg ONETIME ONE Administration - Re-Assessments/Exams Free Text/Narrative Re-Assessment/Exam: 11/03/20 11:30 Patient presents to the ED for her left wrist injury. We will get x-rays for evaluation, and give her an injection of Toradol for pain management. 11/03/20 12:16 The patient's x-ray does demonstrate a distal radius fracture, that is displaced and mildly comminuted. She will be given a dose of IM Dilaudid along with oral Zofran for continuing pain management. Departure - Departure Time of Disposition: 13:08 Disposition: Home, Self-Care 01 Condition: Good Clinical Impression: Distal radius fracture, left Qualifiers: Encounter type: initial encounter Fracture type: closed Fracture morphology: other fracture Qualified Code(s): S52.592A - Other fractures of lower end of left radius, initial encounter for closed fracture - Discharge Information *PRESCRIPTION DRUG MONITORING PROGRAM REVIEWED*: Yes *COPY OF PRESCRIPTION DRUG MONITORING REPORT IN PATIENT SAVITA: No Prescriptions: Hydrocodone/Acetaminophen [Hydrocodone-Acetamin 5-325 mg] 1 each PO Q6H PRN #12 tablet PRN Reason: Pain Instructions: Radial Fracture Referrals: Mary Olivia MD [Primary Care Provider] - Forms: ED Department Discharge Additional Instructions: You have been evaluated in the ED for your left wrist pain/injury. Your x-ray demonstrated a fracture of your left distal radius. Please use ice as tolerated to the affected area. You may elevate the affected area to provide further relief from swelling. You may take Tylenol 500 mg or ibuprofen 600mg q6 hrs for pain relief. Please do so until you have a tolerable level of pain with activity. Do not exceed 4000mg Tylenol, Do not exceed 3200mg ibuprofen in a 24 hour time period. You were given a prescription for a strong pain medication, hydro codone/acetaminophen 5/325, please take 1 tab every 6 hours as needed for pain not relieved by Tylenol or ibuprofen alone. Please note this does contain Tylenol in it, so do not take more than 4000 mg in a 24-hour time span. These medications can be addictive, so please take as few as possible to achieve adequate pain control. These meds can also be quite constipating, recommend that you increase your oral fluid intake and take a stool softener like MiraLAX while taking these medications. Please call Ortho for follow-up and further evaluation Dr. Becerril is our orthopedic surgeon, his office number is [phone]. Please call and set up an appointment as soon as possible for further management. Please return to ED if your symptoms should change or worsen. Sepsis Event Note (ED) - Evaluation Sepsis Screening Result: No Definite Risk - Focused Exam Vital Signs: Vital Signs Temp Pulse Resp BP Pulse Ox 11/03/20 12:55 95 11/03/20 11:11 96.3 F L 53 L 18 98/69 96
--- NOTE | 2020-11-03 12:09 | CR ---
Left wrist: 4 views of the left wrist were obtained. Comparison: No prior wrist exam. Findings: Osseous: Slightly comminuted distal radial fracture is noted. Anterior fragment is displaced in an anterior direction. Mild joint space narrowing is noted of the distal navicular bone as well as fairly prominent degenerative change at the base of the thumb. Minimal calcifications are seen around the triangular fibrocartilage. Soft tissues: Diffuse soft tissue swelling is noted. Impression: 1. Displaced and mildly comminuted distal radial fracture. 2. Degenerative change as noted above. Diagnostic code #3
[2020-11-03] MEDS ORDERED: Ondansetron 4 MG Tab.DIS PO ONE (12:15)
[2020-11-03] MEDS ORDERED: HYDROmorphone 0.5 MG/0.5 ML Syringe IM ONE (12:15)
== END 2020-11-03 13:27 | disposition home or self-care (01) ==
LOC: JD.ED 11:01
DX: S52.592A Other fractures of lower end of left radius, initial encounter for closed fracture (principal); E66.9 Obesity, unspecified; Z68.33 Body mass index [BMI] 33.0-33.9, adult; Z88.4 Allergy status to anesthetic agent; W18.30XA Fall on same level, unspecified, initial encounter
CPT/HCPCS: 29125; 73110; 96372; 99283; A9270; J1170; J1885

== ENCOUNTER 2020-11-08 10:06 | Day surgery (SDC) | payer MEDICARE, BC ==
[~2020-11-08 10:06] MED LIST changes: -HYDROmorphone 1 MG/ML Syringe ONE; -Ketorolac 30 MG/ML SDV ONE; +Lactated Ringers 1,000 ML IV SCH; -Lactated Ringers 1,000 ML ONE; -Lidocaine 1%/Sod Bicarbonate in NS 8.4% 1 ML Syringe PRN; -Midazolam 1 MG/ML 2 ML SDV ONE; -Ondansetron 4 MG/2 ML SDV ONE; -Propofol 200 MG/20 ML SDV ONE; -Rocuronium 50 MG/5 ML Vial ONE; -ceFAZolin 1 GM Vial ONE; -fentaNYL 250 MCG/5 ML SDV ONE
[2020-11-08] MEDS ORDERED: Scopolamine 1.5 MG Transdermal Patch TOP SCH (10:26)
[2020-11-08] MEDS ORDERED: Bupivacaine 0.25% 10 ML SDV ONE (11:06)
--- NOTE | 2020-11-08 11:22 | PCM.PREANE ---
Preanesthetic Assessment - Anesthesia/Transfusion/Family Hx Anesthesia History: Prior Anesthesia Without Reaction Transfusion History: No Prior Transfusion(s) - Review of Systems General: No Symptoms Pulmonary: No Symptoms Cardiovascular: No Symptoms Gastrointestinal: No Symptoms Neurological: No Symptoms Other: Reports: None - Physical Assessment NPO Status Date: 11/07/20 NPO Status Time: 23:00 Vital Signs: Last Vital Signs Temp 99.2 F 11/08/20 10:15 Pulse 63 11/08/20 10:15 Resp 16 11/08/20 10:15 BP 157/72 H 11/08/20 10:15 Pulse Ox 97 11/08/20 10:15 Height: 1.57 m Weight: 84.822 kg ASA Class: 2 Mental Status: Alert & Oriented x3 Dentition: Reports: Normal Dentition, Broken Tooth/Teeth Thyro-Mental Finger Breadths: 3 Mouth Opening Finger Breadths: 3 ROM/Head Extension: Full Lungs: Clear to Auscultation, Normal Respiratory Effort Cardiovascular: Regular Rate, Regular Rhythm - Lab Values: Laboratory Last Values MRSA (PCR) Negative 11/06/20 12:24 - Allergies Allergies/Adverse Reactions: Allergies Allergy/AdvReac Type Severity Reaction Status Date / Time lidocaine Allergy Severe Facial Verified 11/07/20 15:59 Swelling - Acknowledgements Anesthesia Type Planned: General Anesthesia, Regional Block (axillary block for postoperative pain coverage), MAC Pt an Appropriate Candidate for the Planned Anesthesia: Yes Alternatives and Risks of Anesthesia Discussed w Pt/Guardian: Yes Pt/Guardian Understands and Agrees with Anesthesia Plan: Yes PreAnesthesia Questionnaire HEENT History: Reports: Impaired Vision Other HEENT History: wears glasses Cardiovascular History: Reports: None Respiratory History: Reports: Other (See Below) Other Respiratory History: cough Gastrointestinal History: Reports: Irritable Bowel Syndrome Genitourinary History: Reports: Other (See Below) Other Genitourinary History: cystocele, pelvic pressure, pelvic prolapse, rectocele WOUND/OSTOMY NURSE History: Reports: , Other (See Below) Other OB/BYN History: pelvic pressure and prolapse, fibrocystic breast disease, breast lumpectomy Musculoskeletal History: Reports: Other (See Below) Other Musculoskeletal History: left wrist fracture, hand repair, cyst removal Neurological History: Reports: None Psychiatric History: Reports: None Endocrine/Metabolic History: Reports: Obesity/BMI 30+, Osteopenia, Vitamin D Deficiency Hematologic History: Reports: None Immunologic History: Reports: None Oncologic (Cancer) History: Reports: None Dermatologic History: Reports: None - Infectious Disease History Infectious Disease History: Reports: None - Past Surgical History Head Surgeries/Procedures: Reports: None HEENT Surgical History: Reports: Tonsillectomy Cardiovascular Surgical History: Reports: None Respiratory Surgical History: Reports: None GI Surgical History: Reports: Appendectomy, Colonoscopy Female Surgical History: Reports: None Male Surgical History: Reports: None Endocrine Surgical History: Reports: None Neurological Surgical History: Reports: None Musculoskeletal Surgical History: Reports: Other (See Below) Other Musculoskeletal Surgeries/Procedures:: cyst removed from R middle finger in 2010 Oncologic Surgical History: Reports: Lumpectomy Other Oncologic Surgeries/Procedures: breast lumpectecomy for fibrocystic breast disease Dermatological Surgical History: Reports: None - SUBSTANCE USE Tobacco Use Status *Q: Never Tobacco User Recreational Drug Use History: No - HOME MEDS Home Medications: Home Meds L.acidoph,Paracasei, B.lactis [Probiotic] 1 cap PO DAILY 05/19/17 [History] Albuterol Sulfate [Proair Hfa] 1 - 2 puff INH Q4HR PRN 11/07/20 [History] Cholecalciferol (Vitamin D3) [Vitamin D3] 5,000 unit PO DAILY 11/07/20 [History] Fexofenadine [Vicky] 60 mg PO DAILY 11/07/20 [History] Fluticasone Propionate [Flonase] 1 dose NASBOTH BID PRN 11/07/20 [History] Glucosam/Chondr/Collagn/Hyalur [Glucosamine & Chondroitin Cap] 1 cap PO DAILY 11/07/20 [History] Multivitamin 1 tab PO DAILY 11/07/20 [History] Turmeric 400 mg PO DAILY 11/07/20 [History] Hydrocodone/Acetaminophen [Hydrocodone-Acetamin 5-325 mg] 1 - 2 each PO Q6H PRN #30 tablet 11/08/20 [Rx] Ondansetron [Zofran] 4 mg PO Q6H PRN #20 tab 11/08/20 [Rx] - CURRENT (IN HOUSE) MEDS Current Meds: Current Medications Lactated Ringer's (Ringers, Lactated) 1,000 mls @ 125 mls/hr IV ASDIRECTED AUBREY Stop: 11/08/20 23:00 Last Admin: 11/08/20 10:30 Dose: 125 mls/hr Documented by: Scopolamine (Transderm-Scop) 1.5 mg TOP ONETIME AUBREY Stop: 11/08/20 16:00 Last Admin: 11/08/20 10:43 Dose: 1.5 mg Documented by: Sodium Chloride (Saline Flush) 10 ml FLUSH ASDIRECTED PRN PRN Reason: Keep Vein Open Stop: 11/08/20 18:00 Discontinued Medications Bupivacaine HCl (Sensorcaine-Mpf 0.25%) Confirm Administered Dose 30 ml .ROUTE .STK-MED ONE Stop: 11/08/20 11:07
[2020-11-08] MEDS ORDERED: Dexmedetomidine 200 MCG/2 ML SDV ONE (11:30)
[2020-11-08] MEDS ORDERED: Ropivacaine 0.5% 5 MG/ML 30 ML SDV ONE (11:30)
[2020-11-08] MEDS ORDERED: Midazolam 1 MG/ML 2 ML SDV ONE (11:35)
[2020-11-08] MEDS ORDERED: Propofol 200 MG/20 ML SDV ONE (12:18)
[2020-11-08] MEDS ORDERED: ceFAZolin 1 GM Vial ONE (12:29)
[2020-11-08] MEDS ORDERED: Dexamethasone 4 MG/ML 5 ML MDV ONE (12:30)
[2020-11-08] MEDS ORDERED: Ondansetron 4 MG/2 ML SDV ONE (12:30)
[2020-11-08] MEDS ORDERED: fentaNYL 100 MCG/2 ML SDV ONE (12:32)
[2020-11-08] MEDS ORDERED: HYDROmorphone 0.5 MG/0.5 ML Syringe IVPUSH PRN (13:09)
[2020-11-08] MEDS ORDERED: fentaNYL 100 MCG/2 ML SDV IVPUSH PRN (13:09)
--- NOTE | 2020-11-08 13:37 | CR ---
Left wrist: 4 views left wrist were obtained. Comparison: Prior left wrist study of 11/03/20. Findings: Osseous: Previous distal radial fracture has been reduced and shows fixation with plate and screws. Soft tissue swelling is present. No additional abnormality is seen. Fluoroscopy time given is 7.1 seconds. Impression: 1. Procedural study as described above. Diagnostic code #2
[2020-11-08 14:08] VITALS: BP 127/57; PULSE 54
--- NOTE | 2020-11-08 14:16 | PCM48HPAN ---
Post Anesthesia Note - EVALUATION WITHIN 48HRS OF ANESTHETIC Vital Signs in Normal Range: Yes Patient Participated in Evaluation: Yes Respiratory Function Stable: Yes Airway Patent: Yes Cardiovascular Function Stable: Yes Hydration Status Stable: Yes Pain Control Satisfactory: Yes Nausea and Vomiting Control Satisfactory: Yes Mental Status Recovered: Yes Vital Signs: Last Vital Signs Temp 97.3 F 11/08/20 13:30 Pulse 54 L 11/08/20 14:08 Resp 16 11/08/20 14:08 BP 127/57 L 11/08/20 14:08 Pulse Ox 97 11/08/20 14:08
--- NOTE | 2020-11-08 14:31 | PCM.PRNOTE ---
- Free Text/Narrative Note: Postoperative regional pain control requested by surgeon. Pre-op Dx: Left distal ulnar and radius fracture fracture . Surgical procedure: Left wrist open reduction with internal fixation Procedure: Left axillary block of brachial plexus with U/S guidance Requesting physician: Dr. Jimi Peacock Risks and benefits discussed with the patient preoperatively including infection, bleeding, incomplete or failed block, possible nerve damage, local anesthetic toxicity. Chart reviewed, VS stable. Permit signed. Patient in preoperative room, stable , alert and awake. Time out performed at 11:52. Oxygen 2L via NC. Midazolam IV 2 mg given. Left arm abducted 90 degrees, supinated and supported on the bedside table. Left arm has been prepped with Chloraprep x 1 and allowed to dry. Under aseptic technique, the brachial plexus branches were identified around axillary artery under ultrasound prior to needle insertion. 2" Stimuplex needle #22 G was inserted under US guidance. Under direct visualization of needle tip the injection of 0.5% Ropivacaine with 1:200k epinephrine, 8 mg of Dexamethasone and 35 mcg of Dexmedetomidine (30 ml total volume in divided doses) was performed around median, radial and ulnar branches, and around musculocutaneous nerve after needle redirection. Nerve stimulation of 0.6 mAmp with elicited flexion of the forearm was used to confirm the proximity of the musculocutaneous nerve . Negative aspiration was maintained with each 3 ml aliquot of injection. No local anesthetic toxicity was noted. Patient is awake, stable and tolerated the procedure well. Please see the attached U/S images Time: 11:52 - 12:03
--- NOTE | 2020-11-20 07:36 | PCM.OPNOTE ---
- General Post-Op/Procedure Note Date of Surgery/Procedure: 11/08/20 Operative Procedure(s): open reduction internal fixation left distal radius fracture Pre Op Diagnosis: left distal radius volar sheer fracture Post-Op Diagnosis: Same Anesthesia Technique: General LMA, Local Primary Surgeon: Jimi Becerirl Anesthesia Provider: Tony Ren Carpenter Prototype: Priyanka Nieto in mLs: 5 Complications: None Condition: Good
--- NOTE | 2020-11-21 02:06 | OR ---
DATE OF OPERATION: 11/08/2020 SURGEON: Jimi Becerril MD OPERATION PERFORMED: Open reduction and internal fixation of left distal radius fracture. PREOPERATIVE DIAGNOSIS: Left distal radius volar shear fracture. POSTOPERATIVE DIAGNOSIS: Left distal radius volar shear fracture. ANESTHESIA: General LMA with local. ANESTHESIA PROVIDER: Yolanda Juan. HAT LINING PASTER: Priyanka Nieto PA-C. ESTIMATED BLOOD LOSS: 5 mL. COMPLICATIONS: None. CONDITION: Stable. DESCRIPTION OF PROCEDURE: The patient was identified in the preoperative holding area. Proper site was marked and identified by the surgeon. The patient was taken back to the operating theater, where after adequate anesthesia the patient's left upper extremity sterilely prepped and draped in the usual sterile fashion. OR time- out was performed. 2 g of IV Ancef was given. Left upper extremity was then exsanguinated. Tourniquet was insufflated to 220 mmHg. A standard volar approach to Zeus was taken down to the FCR. FCR was retracted to protect the median nerve. Floor of the tendon sheath was then opened and takedown of the pronator quadratus distally was done off the bone, elevating it off the bone. The fracture site was identified. A Jessa short volar locking plate was then applied. Reduction was then found to be adequate on both AP and lateral views after traction and the plate was noted to have good buttress effect of the previous fracture site, which was anatomically reduced. A K-wire was then placed both proximally and into the shaft to hold it in place. Four locking screws were then placed distally and then 2 nonlocking and 1 locking screw was placed in the shaft. It was found to be positioned well with anatomic reduction of radial height and volar tilt on both AP, lateral and 23-degree lateral views. Adequate saline was then irrigated through the wound. 3-0 Vicryl was used subcutaneously. Monocryl was used for closure of skin. The patient was placed in a sterile soft dressing and a volar slab splint and sent to the PACU in stable condition. MMODAL /[id number]
== END 2020-11-08 14:45 | disposition home or self-care (01) ==
LOC: JD.SDS 10:06
PROVIDERS: ATTEND Orthopaedic Surgery
DX: S52.572A Other intraarticular fracture of lower end of left radius, initial encounter for closed fracture (principal); E66.9 Obesity, unspecified; E55.9 Vitamin D deficiency, unspecified; M85.80 Other specified disorders of bone density and structure, unspecified site; Z88.8 Allergy status to other drugs, medicaments and biological substances; Z79.899 Other long term (current) drug therapy; Z90.49 Acquired absence of other specified parts of digestive tract; Z98.890 Other specified postprocedural states; Z68.34 Body mass index [BMI] 34.0-34.9, adult
CPT/HCPCS: 25608; 76000; 87641; A9270; C1713; C1776; J0690; J1100; J2250; J2405; J2704; J2795; J3010; J3490; J7120; 01830; 64415

== ENCOUNTER 2021-04-07 19:04 | Emergency (ER) | payer MEDICARE, BC ==
[2021-04-07 19:57] VITALS: BP 152/82; PULSE 70
--- NOTE | 2021-04-07 20:35 | EDM.PDOC ---
ED HPI GENERAL MEDICAL PROBLEM - General Chief Complaint: Genitourinary Problem Stated Complaint: POSS UTI Time Seen by Provider: 04/07/21 19:39 Source of Information: Reports: Patient History Limitations: Reports: No Limitations, Other (ED vital signs reveal a temp of 98.3, pulse of 70, respiratory rate of 20, blood pressure 152/82, pulse ox 90% on room air) - History of Present Illness INITIAL COMMENTS - FREE TEXT/NARRATIVE: 70-year-old female presents to the emergency department today with complaints of urinary symptoms. She states she developed urinary frequency about 2 days ago. She states that this morning she developed burning with urination, voiding only small amounts, and she did note some blood in her urine. She also states that last night she had a low-grade temp of 99.2. She has reported some nausea that started last evening as well however she has not had any vomiting. She denies any diarrhea or constipation. She does report some bladder discomfort with palpation. She also states that she developed low back pain this afternoon. Bilateral Lower Abdomen Pain Score (Numeric/FACES): 5 - Related Data Allergies Allergy/AdvReac Type Severity Reaction Status Date / Time lidocaine Allergy Severe Facial Verified 04/07/21 20:21 Swelling Home Meds: Home Meds L.acidoph,Paracasei, B.lactis [Probiotic] 1 cap PO DAILY 05/19/17 [History] Cholecalciferol (Vitamin D3) [Vitamin D3] 5,000 unit PO DAILY 11/07/20 [History] Fexofenadine [Vicky] 60 mg PO DAILY 11/07/20 [History] Multivitamin 1 tab PO DAILY 11/07/20 [History] Turmeric 400 mg PO DAILY 11/07/20 [History] cephALEXin [Keflex] 500 mg PO BID #13 cap 04/07/21 [Rx] Past Medical History HEENT History: Reports: Impaired Vision Other HEENT History: wears glasses Cardiovascular History: Reports: None Respiratory History: Reports: Other (See Below) Other Respiratory History: cough Gastrointestinal History: Reports: Irritable Bowel Syndrome Genitourinary History: Reports: Other (See Below) Other Genitourinary History: cystocele, pelvic pressure, pelvic prolapse, rect ocele 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: , 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 (See Below) Other PICK PULLING MACHINE TENDER History: pelvic pressure and prolapse, fibrocystic breast disease, breast lumpectomy Musculoskeletal History: Reports: Other (See Below) Other Musculoskeletal History: left wrist fracture, hand repair, cyst removal Neurological History: Reports: None Psychiatric History: Reports: None Endocrine/Metabolic History: Reports: Obesity/BMI 30+, Osteopenia, Vitamin D Deficiency Hematologic History: Reports: None Immunologic History: Reports: None Oncologic (Cancer) History: Reports: None Dermatologic History: Reports: None - Infectious Disease History Infectious Disease History: Reports: None - Past Surgical History Head Surgeries/Procedures: Reports: None HEENT Surgical History: Reports: Tonsillectomy Cardiovascular Surgical History: Reports: None Respiratory Surgical History: Reports: None GI Surgical History: Reports: Appendectomy, Colonoscopy Female Surgical History: Reports: None Endocrine Surgical History: Reports: None Neurological Surgical History: Reports: None Musculoskeletal Surgical History: Reports: Other (See Below) Other Musculoskeletal Surgeries/Procedures:: cyst removed from R middle finger in 2010 Oncologic Surgical History: Reports: Lumpectomy Other Oncologic Surgeries/Procedures: breast lumpectecomy for fibrocystic breast disease Dermatological Surgical History: Reports: None Social & Family History - Family History Family Medical History: No Pertinent Family History - Tobacco Use Tobacco Use Status *Q: Never Tobacco User Second Hand Smoke Exposure: No - Caffeine Use Caffeine Use: Reports: Coffee Caffeine Use Comment: minimal - Recreational Drug Use Recreational Drug Use: No ED ROS GENERAL - Review of Systems Review Of Systems: Comprehensive ROS is negative, except as noted in HPI. ED EXAM, RENAL/ - Physical Exam Exam: See Below Exam Limited By: No Limitations General Appearance: Alert, WD/WN, No Apparent Distress Ears: Normal External Exam, Hearing Grossly Normal Nose: Normal Inspection Throat/Mouth: Normal Inspection, Normal Lips, Normal Voice, No Airway Compromise Head: Atraumatic Neck: Normal Inspection, Supple Respiratory/Chest: No Respiratory Distress, Lungs Clear, Normal Breath Sounds, No Accessory Muscle Use, Chest Non-Tender Cardiovascular: Normal Peripheral Pulses, Regular Rate, Rhythm GI/Abdominal: Normal Bowel Sounds, Soft, No Distention, Tender (Suprapubic tenderness noted) (Female) Exam: Deferred Rectal (Female) Exam: Deferred Back Exam: Normal Inspection Extremities: Normal Inspection Neurological: Alert, Oriented, Normal Cognition Psychiatric: Normal Affect, Normal Mood Skin Exam: Warm, Dry, Intact, Normal Color, No Rash Lymphatic: No Adenopathy Course - Vital Signs Text/Narrative:: Patient presents with urinary symptoms. She states this started about 2 days ago and has progressed. Last evening developed nausea and low-grade temp. Today she developed burning with urination and suprapubic tenderness. She also notes that this afternoon she noted some blood in her urine. I have ordered a urinalysis with micro and culture as indicated and labs. Last Recorded V/S: Last Vital Signs Temp 98.3 F 04/07/21 19:54 Pulse 70 04/07/21 19:54 Resp 20 04/07/21 19:54 BP 152/82 H 04/07/21 19:54 Pulse Ox 98 04/07/21 19:54 - Orders/Labs/Meds Orders: Active Orders 24 hr Category Date Time Status CULTURE URINE [RM] Stat Lab 04/07/21 19:50 Received Labs: Laboratory Tests 04/07/21 04/07/21 04/07/21 Range/Units 19:50 20:24 20:24 WBC 8.54 (3.98-10.04) K/mm3 RBC 4.79 (3.98-5.22) M/mm3 Hgb 13.8 (11.2-15.7) gm/dl Hct 41.5 (34.1-44.9) % MCV 86.6 (79.4-94.8) fl MCH 28.8 (25.6-32.2) pg MCHC 33.3 (32.2-35.5) g/dl RDW Std Deviation 42.9 (36.4-46.3) fL Plt Count 241 (182-369) K/mm3 MPV 10.2 (9.4-12.3) fl Neut % (Auto) 75.9 H (34.0-71.1) % Lymph % (Auto) 11.1 L (19.3-51.7) % [place] % (Auto) 11.9 (4.7-12.5) % Eos % (Auto) 0.8 (0.7-5.8) Baso % (Auto) 0.2 (0.1-1.2) % Neut # (Auto) 6.47 H (1.56-6.13) K/mm3 Lymph # (Auto) 0.95 L (1.18-3.74) K/mm3 [place] # (Auto) 1.02 H (0.24-0.36) K/mm3 Eos # (Auto) 0.07 (0.04-0.36) K/mm3 Baso # (Auto) 0.02 (0.01-0.08) K/mm3 Sodium 136 (136-145) mEq/L Potassium 3.8 (3.5-5.1) mEq/L Chloride 100 (98-107) mEq/L Carbon Dioxide 24 (21-32) mEq/L Anion Gap 15.8 H (5-15) BUN 9 (7-18) mg/dL Creatinine 0.8 (0.55-1.02) mg/dL Est Cr Clr Drug Dosing 52.49 mL/min Estimated GFR (MDRD) > 60 (>60) mL/min BUN/Creatinine Ratio 11.3 L (14-18) Glucose 98 (80-115) mg/dL Calcium 8.7 (8.5-10.1) mg/dL Total Bilirubin 0.6 (0.2-1.0) mg/dL AST 26 (15-37) U/L ALT 33 (14-59) U/L Alkaline Phosphatase 76 (46-116) U/L C-Reactive Protein 2.3 H* (<1.0) mg/dL Total Protein 7.0 (6.4-8.2) g/dl Albumin 3.8 (3.4-5.0) g/dl Globulin 3.2 gm/dL Albumin/Globulin Ratio 1.2 (1-2) Urine Color Yellow (Yellow) Urine Appearance Cloudy H (Clear) Urine pH 6.0 (5.0-8.0) Ur Specific [place] 1.025 (1.005-1.030) Urine Protein 2+ H (Negative) Urine Glucose (UA) Negative (Negative) Urine Ketones 2+ H (Negative) Urine Occult Blood 3+ H (Negative) Urine Nitrite Positive H (Negative) Urine Bilirubin Negative (Negative) Urine Urobilinogen 0.2 (0.2-1.0) Ur Leukocyte Esterase 1+ H (Negative) Urine RBC Too numerous to cnt H (0-5) /hpf Urine WBC 5-10 H (0-5) /hpf Ur Squamous Epith Cells 0-5 (0-5) /hpf Urine Bacteria Few (FEW) /hpf Urine Mucus Not seen (FEW) /hpf Meds: Medications Discontinued Medications Generic Name Dose Route Start Last Admin Trade Name Elias PRN Reason Stop Dose Admin Ceftriaxone Sodium 1 gm 04/07/21 20:43 04/07/21 20:54 Ceftriaxone 1 Gm Vial IM 04/07/21 20:44 1 gm ONETIME ONE Administration Cephalexin 500 mg 04/07/21 20:51 Cephalexin 500 Mg Cap PO 04/07/21 20:52 ONETIME ONE - Re-Assessments/Exams Free Text/Narrative Re-Assessment/Exam: 04/07/21 20:53 Hematology is essentially unremarkable Urinalysis reveals 2+ protein, 2+ ketones, 3+ occult blood, nitrate positive, 1+ leukocyte Estrace, urine RBC too numerous to count, urine WBC 5-10 Patient will be given a gram of Rocephin IM. I have also ordered for her to take home a 500 mg oral dose of Keflex to take first thing in the morning as her pharmacy does not open up until noon tomorrow. 04/07/21 21:08 Chemistry reveals a sodium of 136, potassium 3.8, anion gap 15.8, BUN 9, creatinine 0.8, glucose 98, C-reactive protein 2.3 Patient will be discharged home with prescription for oral antibiotics and recommendations that she follow-up with her primary care physician once she has completed her antibiotic course Departure - Departure Time of Disposition: 21:09 Disposition: Home, Self-Care 01 Condition: Good Clinical Impression: UTI, Urinary tract infectious disease - Discharge Information Prescriptions: cephALEXin [Keflex] 500 mg PO BID #13 cap Referrals: Mary Olivia MD [Primary Care Provider] - Forms: ED Department Discharge Additional Instructions: You were seen in the emergency department today with complaints of a urinary tract infection. Urinalysis and labs were completed and urinalysis does indicate that you have a UTI. You were given a dose of IM antibiotic called Rocephin while in the emergency department and you were sent home with an oral antibiotic called Keflex for which you can take first thing in the morning. I have sent prescription for Keflex 500 mg to be taken twice daily until gone. This will be for a total of 7 days. Keep in mind it may take 48 to 96 hours before you start to feel better. Strongly recommend you follow-up with your primary care physician once you have completed your course of antibiotics to h ave reevaluation of your urine. You may also take Azo and [id number] medication. This has been shown to decrease irritation to your bladder. Sepsis Event Note (ED) - Evaluation Sepsis Screening Result: No Definite Risk - Focused Exam Vital Signs: Vital Signs Temp Pulse Resp BP Pulse Ox 04/07/21 19:54 98.3 F 70 20 152/82 H 98 - My Orders Last 24 Hours: My Active Orders 04/07/21 19:50 CULTURE URINE [RM] Stat - Assessment/Plan Last 24 Hours: My Active Orders 04/07/21 19:50 CULTURE URINE [RM] Stat
[2021-04-07] MEDS ORDERED: cefTRIAXone 1 GM Vial IM ONE (20:43)
[2021-04-07] MEDS ORDERED: Cephalexin 500 MG Cap PO ONE (20:51)
== END 2021-04-07 21:16 | disposition home or self-care (01) ==
LOC: JD.ED 19:04
DX: N39.0 Urinary tract infection, site not specified (principal); E66.9 Obesity, unspecified; Z68.34 Body mass index [BMI] 34.0-34.9, adult; Z88.4 Allergy status to anesthetic agent
CPT/HCPCS: 36415; 80053; 81001; 85025; 86140; 87086; 87088; 87186; 96372; 99283; J0696

== ENCOUNTER 2021-09-07 12:35 | Emergency (ER) | payer MEDICARE, BC ==
[2021-09-07 14:05] VITALS: BP 150/72; PULSE 73
[2021-09-07] MEDS ORDERED: Acetaminophen 325 MG Tab PO ONE (14:23)
--- NOTE | 2021-09-07 14:32 | EDM.PDOC ---
ED HPI GENERAL MEDICAL PROBLEM - General Chief Complaint: Lower Extremity Injury/Pain Stated Complaint: R KNEE PAIN Time Seen by Provider: 09/07/21 14:00 Source of Information: Reports: Patient History Limitations: Reports: No Limitations - History of Present Illness INITIAL COMMENTS - FREE TEXT/NARRATIVE: Patient 70-year-old female presenting with a chief complaint of right knee pain. Patient states knee pain started yesterday. Patient reports knee pain starting while she was playing tennis. Patient denies any specific injury that seem to aggravate it. Patient reports that pain got worse as she continued to play tennis. Pain is located primarily in the medial aspect of the right knee. No radiation of the pain. Some discomfort on the outer right thigh. No numbness or tingling. No swelling or redness noted. No fevers. Denies any previous surgeries on this knee. Patient has not taken any pain medication prior to arrival. Patient reports pain is worse with ambulation. Right Knee Pain Score (Numeric/FACES): 7 - Related Data Allergies Allergy/AdvReac Type Severity Reaction Status Date / Time lidocaine Allergy Severe Facial Verified 04/07/21 20:21 Swelling Home Meds: Home Meds L.acidoph,Paracasei, B.lactis [Probiotic] 1 cap PO DAILY 05/19/17 [History] Cholecalciferol (Vitamin D3) [Vitamin D3] 5,000 unit PO DAILY 11/07/20 [History] Fexofenadine [Vicky] 60 mg PO DAILY 11/07/20 [History] Multivitamin 1 tab PO DAILY 11/07/20 [History] Turmeric 400 mg PO DAILY 11/07/20 [History] cephALEXin [Keflex] 500 mg PO BID #13 cap 04/07/21 [Rx] Past Medical History HEENT History: Reports: Impaired Vision Other HEENT History: wears glasses Cardiovascular History: Reports: None Respiratory History: Reports: Other (See Below) Other Respiratory History: cough Gastrointestinal History: Reports: Irritable Bowel Syndrome Genitourinary History: Reports: Other (See Below) Other Genitourinary History: cystocele, pelvic pressure, pelvic prolapse, rectocele 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: , Other (See Below) 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: pelvic pressure and prolapse, fibrocystic breast disease, breast lumpectomy Musculoskeletal History: Reports: Other (See Below) Other Musculoskeletal History: left wrist fracture, hand repair, cyst removal Neurological History: Reports: None Psychiatric History: Reports: None Endocrine/Metabolic History: Reports: Obesity/BMI 30+, Osteopenia, Vitamin D Deficiency Hematologic History: Reports: None Immunologic History: Reports: None Oncologic (Cancer) History: Reports: None Dermatologic History: Reports: None - Infectious Disease History Infectious Disease History: Reports: None - Past Surgical History Head Surgeries/Procedures: Reports: None HEENT Surgical History: Reports: Tonsillectomy Cardiovascular Surgical History: Reports: None Respiratory Surgical History: Reports: None GI Surgical History: Reports: Appendectomy, Colonoscopy Female Surgical History: Reports: None Endocrine Surgical History: Reports: None Neurological Surgical History: Reports: None Musculoskeletal Surgical History: Reports: Other (See Below) Other Musculoskeletal Surgeries/Procedures:: cyst removed from R middle finger in 2010 Oncologic Surgical History: Reports: Lumpectomy Other Oncologic Surgeries/Procedures: breast lumpectecomy for fibrocystic breast disease Dermatological Surgical History: Reports: None Social & Family History - Family History Family Medical History: No Pertinent Family History - Tobacco Use Tobacco Use Status *Q: Never Tobacco User Second Hand Smoke Exposure: No - Caffeine Use Caffeine Use: Reports: Coffee Caffeine Use Comment: minimal - Recreational Drug Use Recreational Drug Use: No Review of Systems - Review of Systems Review Of Systems: Comprehensive ROS is negative, except as noted in HPI. ED EXAM, GENERAL - Physical Exam Exam: See Below Free Text/Narrative:: I have reviewed the triage vital signs Const: Well nourished, well developed, appears stated age Eyes: Pupils Equal and reactive to light bilaterally, no conjunctival injection HENT: No signs of trauma or swelling, Neck supple without meningismus CV: Regular Rate Rhythm, Warm, well-perfused extremities RESP: Unlabored respiratory effort MSK: No swelling or erythema surrounding the right knee. Tenderness to palpation of the medial tibial plateau. Range of motion is normal. No gross deformities appreciated Skin: Warm, dry. 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 Sensation and motor function of extremities grossly intact. Psych: Appropriate mood and affect. Course - Vital Signs Last Recorded V/S: Last Vital Signs Temp 36.1 C 09/07/21 14:05 Pulse 73 09/07/21 14:05 Resp 18 09/07/21 14:05 BP 150/72 H 09/07/21 14:05 Pulse Ox 99 10/08/21 14:05 - Orders/Labs/Meds Meds: Medications Discontinued Medications Generic Name Dose Route Start Last Admin Trade Name Elias PRN Reason Stop Dose Admin Acetaminophen 650 mg 09/07/21 14:23 09/07/21 14:52 Acetaminophen 325 Mg Tab PO 09/07/21 14:24 650 mg NOW ONE Administration Departure - Departure Time of Disposition: 15:06 Disposition: Home, Self-Care 01 Clinical Impression: Sprain of knee - Discharge Information Instructions: Knee Sprain, Adult Referrals: Mary Olivia MD [Primary Care Provider] - Forms: ED Department Discharge Additional Instructions: Please limit activity on that knee until you are seen with follow-up. Take Tylenol every 6-8 hours as needed for pain. Ice as needed. Return to the emergency room for worsening symptoms. Sepsis Event Note (ED) - Focused Exam Vital Signs: Vital Signs Temp Pulse Resp BP Pulse Ox 09/07/21 14:05 36.1 C 73 18 150/72 H 99 - Assessment/Plan Assessment:: Patient 70 of female presented to emergency room with atraumatic right knee pain. Patient had unremarkable exam. No evidence of dislocation or fracture based on the clinical exam. X-ray was unremarkable. At this point, no evidence of infected joint. No indication for further work-up at this time. Patient given Tylenol in the emergency room. Will be discharged instructed to follow-up with primary care as an outpatient. Return precautions discussed as usual. Patient agrees with plan of care.
--- NOTE | 2021-09-07 14:52 | CR ---
Right knee: AP, lateral and sunrise patellar view of the right knee was obtained. Comparison: No prior knee study is available. Medial and lateral joint spaces are maintained in height. Mild diffuse narrowing is seen within the patellofemoral joint. No joint effusion is seen. No acute fracture or other bony abnormality is appreciated. Impression: 1. Mild diffuse narrowing within the patellofemoral joint. 2. Nothing acute is seen on 3 view right knee exam. Diagnostic code #2
== END 2021-09-07 15:36 | disposition home or self-care (01) ==
LOC: JD.ED 12:35
DX: S83.91XA Sprain of unspecified site of right knee, initial encounter (principal); E66.9 Obesity, unspecified; Z88.4 Allergy status to anesthetic agent; Z68.30 Body mass index [BMI] 30.0-30.9, adult; X58.XXXA Exposure to other specified factors, initial encounter; Y93.73 Activity, racquet and hand sports
CPT/HCPCS: 73562; 99283; A9270